=== PATIENT | female | born 2005 | race Hispanic/Latino ===

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

== ENCOUNTER 2024-02-20 15:28 | Emergency (ER) | payer OTHER ==
--- NOTE | 2024-02-20 16:45 | RAD REPORT ---
EXAMINATION: Transvaginal OB COMPARISON: None. HISTORY: bleeding TECHNIQUE: Real-time ultrasound was performed through the pelvis. A transvaginal scan was performed t o better visualize the intrauterine contents and adnexa. FINDINGS: Abnormal oblong saclike structure is present in the endometrium. There is surrounding heterogenous ma terial seen. Endometrium measures 9 mm. There is no normal IUP findings within the sac. Both ovaries are normal in size and demonstrate normal blood flow. 2.2 cm left corpus luteal cyst. IMPRESSION: Findings are most compatible with inevitable .
[2024-02-20 17:35] LABS: Absolute Lymphocytes (CBC) 1.8 K/uL (0.7-4.9); Absolute Monocytes 0.4 K/uL (0.1-1.3); Absolute Neutrophil 6.2 K/uL (1.8-8.0); Basophils % 0.3 % (0-1.3); Eosinophils % 0.3 % (0-4.4); Hemoglobin 13.3 g/dL (12.0-15.0); Lymphocytes % 21.1 % (15.3-44.8); MCH 29.8 pg (27.0-35.0); MCHC 33.2 g/dL (32.0-36.0); MPV 9.4 fL (7.6-11.3); Monocytes % 4.9 % (3.3-12.3); Neutrophils % 73.4 % (41.7-73.7); Platelets 269 thou/uL (152-406); RBC Red Blood Cell Count 4.45 M/uL (3.86-4.86); Red Cell Distribution Width 13.7 % (12.1-15.2); Specific Gravity 1.005 (1.005-1.030)
[2024-02-20 17:41] LABS: Specific Gravity 1.005 (1.005-1.030); Sqamous Epithelial <5 /HPF (None Seen); Urine Bacteria <20 /HPF (<20); Urine Bilirubin NEGATIVE (Negative); Urine Blood 3+ (OVER) (Negative); Urine Clarity Extremely Turbid (Clear); Urine Color Colorless (Yellow); Urine Culture Reflex Order NOT NEEDED; Urine Glucose NEGATIVE (Negative); Urine Ketones NEGATIVE (Negative); Urine Microscopic Reflex YN ORDER UMIC; Urine Nitrite NEGATIVE (Negative); Urine Protein NEGATIVE (Negative); Urine Urobilinogen Normal (Normal); Urine WBC <5 /HPF (<5)
[2024-02-20 17:50] LABS: Anion Gap 8.8 mEq/L (5.0-15.0); Potassium 3.8 mEq/L (3.5-5.1)
--- NOTE | 2024-02-20 18:34 | EDPHYS ---
Physician Documentation [facility] Name: Renee Rutledge Age: 18 yrs Sex: Female : 2005 Arrival Date: 02/20/2024 Time: 15:28 Bed 13 Private MD: ED Physician Freedom Greene HPI: 02/19 17:46 This 18 yrs old Female presents to ER via Ambulatory with complaints of rt Vaginal Bleeding, + Preg <12wks. 17:46 Patient is reportedly about 6 weeks presents to the ED with vaginal bleeding, rt less than a period but more than spotting for the past hour. Reports a lower abdominal cramping but denies other pain, acute complaints. Symptoms are moderate in severity, no other aggravating alleviating factors. 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 - Social history:: Smoking status: Patient denies any tobacco usage or history of. - Family history:: not pertinent. ROS: 17:46 Constitutional: Negative for fever, chills, and weight loss, Cardiovascular: Negative rt for chest pain, palpitations, and edema, Respiratory: Negative for shortness of breath, cough, wheezing, and pleuritic chest pain, Abdomen/GI: Negative for abdominal pain, nausea, vomiting, diarrhea, and constipation, Skin: Negative for injury, rash, and discoloration, Neuro: Negative for headache, weakness, numbness, tingling, and seizure, 17:46 : Positive for Vaginal bleeding, negative for dysuria, Exam: 17:46 Constitutional: This is a well developed, well nourished patient who is awake, alert, rt and in no acute distress. Head/Face: Normocephalic, atraumatic. Chest/axilla: Normal chest wall appearance and motion. Nontender with no deformity. No lesions are appreciated. Cardiovascular: Regular rate and rhythm with a normal S1 and S2. No gallops, murmurs, or rubs. Normal PMI, no JVD. No pulse deficits. Respiratory: Lungs have equal breath sounds bilaterally, clear to auscultation and percussion. No rales, rhonchi or wheezes noted. No increased work of breathing, no retractions or nasal flaring. Abdomen/GI: Soft, non-tender, with normal bowel sounds. No distension or tympany. No guarding or rebound. No evidence of tenderness throughout. Skin: Warm, dry with normal turgor. Normal color with no rashes, no lesions, and no evidence of cellulitis. MS/ Extremity: Pulses equal, no cyanosis. Neurovascular intact. Full, normal range of motion. Neuro: Awake and alert, GCS 15, oriented to person, place, time, and situation. Cranial nerves II-XII grossly intact. Motor strength 5/5 in all extremities. Sensory grossly intact. Cerebellar exam normal. Normal gait. Vital Signs: 15:52 BP 130 / 88; Pulse 83; Resp 14; Temp 97.8(TE); Pulse Ox 100% on R/A; Height 5 ft. 3 in. ss ; Pain 5/10; 15:52 Pain Scale: Adult ss MDM: 15:56 Medical Screening Exam initiated rt 18:33 ED course: Patient signed out to me by Dr. Sanchez to follow-up on ABO Rh. Patient sp3 is O+ therefore RhoGAM is not indicated. We will safely discharge her home at this time with diagnosis inevitable AB.. 02/19 15:58 Order name: Abo/rh Typing; Complete Time: 18:33 rt 02/19 15:58 Order name: Basic Metabolic Panel; Complete Time: 18:33 rt 02/19 15:58 Order name: CBC with Diff; Complete Time: 17:42 rt 02/19 15:58 Order name: Test, Urine; Complete Time: 17:42 rt 02/19 15:58 Order name: Quantitative Hcg; Complete Time: 18:33 rt 02/19 15:58 Order name: Urinalysis w/ reflexes; Complete Time: 17:42 rt 02/19 15:58 Order name: US Transvaginal Ob; Complete Time: 16:48 rt 02/19 15:58 Order name: IV Saline Lock; Complete Time: 17:19 rt 02/19 15:58 Order name: Labs collected and sent; Complete Time: 17:19 rt 02/19 15:58 Order name: NPO; Complete Time: 17:19 rt Administered Medications: No medications were administered Disposition Summary: 02/20/24 18:33 Discharge Ordered Notes: Location: Home sp3 Condition: Stable sp3 Diagnosis - Inevitable miscarriage sp3 Followup: sp3 - With: Private Physician - When: Upon discharge from the Emergency Department - Reason: Continuance of care Discharge Instructions: - Discharge Summary Sheet sp3 - Incomplete Miscarriage sp3 Forms: - Medication Reconciliation Form sp3 - Antibiotic Education sp3 - Prescription Opioid Use sp3 - Patient Portal Instructions sp3 - Leadership Thank You Letter sp3 - Family Work Release tm6 Signatures: Dispatcher [employer] Milka Rod RN RN ss Freedom Greene MD MD sp3 Oscar Sanchez MD MD rt
--- NOTE | 2024-02-20 18:34 | ER ---
Nurse's Notes [facility] Name: Renee Rutledge Age: 18 yrs Sex: Female : 2005 Arrival Date: 02/20/2024 Time: 15:28 Bed 13 Private MD: Diagnosis: Inevitable miscarriage Presentation: 02/19 15:52 Chief complaint: Patient states: light vaginal bleeding that began earlier today. Pt ss reports she is approximately 6 weeks . Coronavirus screen: Client denies travel out of the [place] in the last 14 days. Ebola Screen: Patient denies exposure to infectious person. Patient denies travel to an Ebola-affected area in the 21 days before illness onset. Initial Sepsis Screen: Does the patient meet any 2 criteria? No. Patient's initial sepsis screen is negative. Does the patient have a suspected source of infection? No. Patient's initial sepsis screen is negative. Risk Assessment: Do you want to hurt yourself or someone else? Patient reports no desire to harm self or others. Onset of symptoms was February 20, 2024. 15:52 Method Of Arrival: Ambulatory ss 15:52 Acuity: ADALID 3 ss Triage Assessment: 16:00 General: Appears in no apparent distress. Behavior is cooperative, appropriate for age, bp anxious. Pain: Denies pain. EENT: No deficits noted. : Reports vaginal bleeding that is. 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 - Social history:: Smoking status: Patient denies any tobacco usage or history of. - Family history:: not pertinent. Screenin:50 [facility] ED Fall Risk Assessment (Adult) History of falling in the last 3 months, bp including since admission No falls in past 3 months (0 pts) Confusion or Disorientation No (0 pts) Intoxicated or Sedated No (0 pts) Impaired Gait No (0 pts) Mobility Assist Device Used No (0 pt) Altered Elimination No (0 pt) Score/Fall Risk Level 0 - 2 = Low Risk. Abuse screen: Denies threats or abuse. Denies injuries from another. Nutritional screening: No deficits noted. Tuberculosis screening: No symptoms or risk factors identified. Assessment: 16:00 General: Appears in no apparent distress. Behavior is cooperative, appropriate for age, bp anxious. : Reports vaginal bleeding that is. 18:50 Reassessment: Patient appears in no apparent distress at this time. Patient is alert, bp oriented x 3, equal unlabored respirations, skin warm/dry/pink. Vital Signs: 15:52 BP 130 / 88; Pulse 83; Resp 14; Temp 97.8(TE); Pulse Ox 100% on R/A; Height 5 ft. 3 in. ss ; Pain 5/10; 15:52 Pain Scale: Adult ss ED Course: 15:32 Patient arrived in ED. mr 15:32 Oscar Sanchez MD is Attending Physician. rt 15:54 Triage completed. ss 15:54 Arm band placed on left wrist. ss 16:37 US Transvaginal Ob In Process Unspecified. EDAR 17:07 Sergei Nevarez, RN is Primary Nurse. bp 17:21 Initial lab(s) drawn, by mn, sent to lab. Urine collected: clean catch specimen, clear. bp Inserted saline lock: 20 gauge in right forearm, using aseptic technique. Blood collected. Flushed with 10 mL NS. 18:00 Attending Physician role handed off by Oscar Sanchez MD sp3 18:00 Freedom Greene MD is Attending Physician. sp3 18:50 Patient has correct armband on for positive identification. bp 18:50 No provider procedures requiring assistance completed. IV discontinued, intact, bp bleeding controlled, No redness/swelling at site. Pressure dressing applied. 18:51 Provided Education on: N/A. bp Administered Medications: No medications were administered Outcome: 18:33 Discharge ordered by . sp3 18:50 Discharged to home ambulatory, with family, bp 18:50 Condition: stable 18:50 Discharge instructions given to patient, Instructed on discharge instructions, follow up and referral plans. Demonstrated understanding of instructions, follow-up care, 18:51 Patient left the ED. bp Signatures: Dispatcher [employer] EDAR Yuki Huang, Reg Reg ChapmanMilka, ALBIN RN Sergei Nevarez, ALBIN RN bp Freedom Greene MD MD sp3 Oscar Sanchez MD MD rt
[2024-02-20 19:06] VITALS: BP 130/88; TEMP 97.8; O2SAT 100
== END 2024-02-20 18:51 | disposition home or self-care (01) ==
LOC: ER 15:28
DX: O03.9 Complete or unspecified spontaneous abortion without complication (principal)
CPT/HCPCS: 36415; 76817; 80048; 81001; 81025; 84702; 85025; 86900; 86901

== ENCOUNTER 2024-06-07 15:58 | Emergency (ER) | payer OTHER, SELFPAY ==
--- NOTE | 2024-06-07 17:20 | RAD REPORT ---
EXAM: Transvaginal OB HISTORY: vomiting;Abd pain COMPARISON: None TECHNIQUE: Multiple grayscale and color Doppler images were obtained in a transvaginal pelvic ultraso und. Spectral analysis of the Doppler waveforms of the ovaries were performed. FINDINGS: UTERUS: There is an intrauterine gestational sac which is low lying and slightly irregular in shape. This contains a yolk sac and pole. [place]-rump length: 0.5 cm which estimates gestational age at 6 week 1 day. A heart rate is detected at 115 bpm. Small subchronic hemorrhage. No free fluid is seen in the pelvis. RIGHT OVARY: Normal flow without focal mass. LEFT OVARY: Normal flow without focal mass. IMPRESSION: Single IUP identified with positive heart tones. Small subchorionic hemorrhage. The gestational sac is low lying and slightly irregular in shape. Consider short-term follow-up ultrasound.
[2024-06-07] MEDS ORDERED: NA CHLORIDE 0.9% 1,000 ML ONE (20:04)
[2024-06-07] MEDS ORDERED: PROMETHAZINE INJ 25 MG/ML AMP ONE (20:04)
[2024-06-07 20:22] LABS: Absolute Lymphocytes (CBC) 1.9 K/uL (0.7-4.9); Absolute Monocytes 0.6 K/uL (0.1-1.3); Absolute Neutrophil 8.6 K/uL (1.8-8.0); Basophils % 0.2 % (0-1.3); Eosinophils % 0.1 % (0-4.4); Hematocrit 41.4 % (36.0-45.0); Hemoglobin 13.9 g/dL (12.0-15.0); MCH 29.9 pg (27.0-35.0); MCHC 33.6 g/dL (32.0-36.0); MPV 9.2 fL (7.6-11.3); Monocytes % 5.4 % (3.3-12.3); Neutrophils % 77.3 % (41.7-73.7); Nucleated Red Blood Cells % 0.1 % (0-0); Platelets 289 thou/uL (152-406); RBC Red Blood Cell Count 4.65 M/uL (3.86-4.86); Red Cell Distribution Width 13.5 % (12.1-15.2)
[2024-06-07 20:50] LABS: Anion Gap 9.6 mEq/L (5.0-15.0); Potassium 3.6 mEq/L (3.5-5.1)
[2024-06-07 21:25] LABS: Specific Gravity 1.021 (1.005-1.030); Urine Bacteria None Seen /HPF (<20); Urine Bilirubin NEGATIVE (Negative); Urine Blood Negative (Negative); Urine Clarity Extremely Turbid (Clear); Urine Color Yellow (Yellow); Urine Culture Reflex Order NOT NEEDED; Urine Glucose NEGATIVE (Negative); Urine Ketones 2+ (Negative); Urine Microscopic Reflex YN ORDER UMIC; Urine Mucus 2+ /HPF (None Seen); Urine Nitrite NEGATIVE (Negative); Urine Protein TRACE (Negative); Urine RBC <5 /HPF (None Seen); Urine Urobilinogen Normal (Normal); Urine WBC <5 /HPF (<5)
--- NOTE | 2024-06-07 21:34 | ER ---
Nurse's Notes [facility] Name: Renee Rutledge Age: 19 yrs Sex: Female : 2005 Arrival Date: 06/07/2024 Time: 15:58 Bed DX2 Private MD: Diagnosis: Hyperemesis gravidarum Presentation: 06/07 16:29 Chief complaint: Patient states: she is 6 weeks and she has been throwing up ap3 everything even water since yesterday at 8pm. patient denies pain at this time. Coronavirus screen: At this time, the client does not indicate any symptoms associated with coronavirus-19. Ebola Screen: No symptoms or risks identified at this time. Initial Sepsis Screen: Does the patient meet any 2 criteria? No. Patient's initial sepsis screen is negative. Does the patient have a suspected source of infection? No. Patient's initial sepsis screen is negative. Risk Assessment: Do you want to hurt yourself or someone else? Patient reports no desire to harm self or others. Onset of symptoms was June 06, 2024 at 20:00. 16:29 Method Of Arrival: Ambulatory ap3 16:29 Acuity: ADALID 3 ap3 Triage Assessment: 16:32 General: Appears in no apparent distress. Behavior is calm, cooperative, appropriate ap3 for age. Pain: Denies pain. Neuro: Level of Consciousness is awake, alert, obeys commands, Oriented to person, place, time, situation. Cardiovascular: Patient's skin is warm and dry. Respiratory: Airway is patent Respiratory effort is even, unlabored, Respiratory pattern is regular, symmetrical. GI: Reports nausea, vomiting. 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 - Infectious Disease History:: Denies. - Social history:: Smoking status: Patient denies any tobacco usage or history of. - Family history:: not pertinent. - Hospitalizations: : No recent hospitalization is reported. Screenin:33 [facility] ED Fall Risk Assessment (Adult) History of falling in the last 3 months, ap3 including since admission No falls in past 3 months (0 pts) Confusion or Disorientation No (0 pts) Intoxicated or Sedated No (0 pts) Impaired Gait No (0 pts) Mobility Assist Device Used No (0 pt) Altered Elimination No (0 pt) Score/Fall Risk Level 0 - 2 = Low Risk Oriented to surroundings, Maintained a safe environment, Educated pt \T\ family on fall prevention, incl call for assistance when getting out of bed, Assessed \T\ reinforced patient's understanding of fall precautions, Hourly rounding (assess needs \T\ fall precautionary measures) done, Used ambulatory aids as needed (educated on \T\ assisted with). Abuse screen: Denies threats or abuse. Nutritional screening: No deficits noted. Tuberculosis screening: No symptoms or risk factors identified. Assessment: 21:26 Reassessment: Patient and/or family updated on plan of care and expected duration. Pain br2 level reassessed. Patient is alert, oriented x 3, equal unlabored respirations, skin warm/dry/pink. Patient states feeling better. Patient states symptoms have improved. Vital Signs: 16:29 BP 119 / 81; Pulse 82; Resp 18; Temp 98; Pulse Ox 100% ; Weight 56.7 kg; Height 5 ft. 3 ap3 in. ; Pain 0/10; 21:24 BP 116 / 64; Pulse 83; Resp 18 S; Pulse Ox 100% on R/A; br2 16:29 Body Mass Index 22.14 (56.70 kg, 160.02 cm) - Percentile 54.9 % ap3 16:29 Pain Scale: Adult ap3 ED Course: 16:01 Patient arrived in ED. mr 16:02 Arnold Norris MD is Attending Physician. rn 16:30 Triage completed. ap3 16:33 Arm band placed on right wrist. ap3 17:10 Transvaginal OB In Process Unspecified. EDMS 20:13 Inserted saline lock: 20 gauge in right antecubital area, using aseptic technique. vk Blood collected. Flushed with 10 mL NS. 20:14 Initial lab(s) drawn, by me, sent to lab. vk 20:14 CBC with Diff Sent. vk 20:14 Basic Metabolic Panel Sent. vk 20:14 HCG-Quantitative Sent. vk 20:36 Attending Physician role handed off by Arnold Norris MD rt 20:36 Oscar Sanchez MD is Attending Physician. rt 21:13 Urinalysis w/ reflexes Sent. hw 21:26 Natacha Abel, ALBIN is Primary Nurse. br2 21:40 No provider procedures requiring assistance completed. br2 21:48 IV discontinued, intact, bleeding controlled, No redness/swelling at site. Pressure br2 dressing applied. Administered Medications: 20:09 Drug: Promethazine IVP 12.5 mg IVP once Route: IVP; Site: right antecubital; vc1 21:00 Follow up: Response: No adverse reaction br2 20:09 Drug: NS 0.9% IV 1000 ml IV at 1000 ml once; to be given as a bolus over 60 minutes vc1 Route: IV; Rate: 1000 ml; Site: right antecubital; 21:15 Follow up: IV Status: Completed infusion; IV Intake: 1000ml br2 Intake: 21:15 IV: 1000ml; Total: 1000ml. br2 Outcome: 21:33 Discharge ordered by MD. rt 21:48 Discharged to home ambulatory, br2 21:48 Condition: good 21:48 Discharge instructions given to patient, Instructed on discharge instructions, follow up and referral plans. Demonstrated understanding of instructions, follow-up care, Prescriptions given X 1, 21:57 Patient left the ED. br2 Signatures: Dispatcher [employer] EDMS Yuki Huang, Reg Reg mr Arnold Norris MD MD rn Prokisch, Amanda, RN RN ap3 Lory Oliveros RN RN vc1 Oscar Sanchez MD MD rt Barbara Luna Belinda, RN RN br2 Ewelina Mejia
--- NOTE | 2024-06-07 21:34 | EDPHYS ---
Physician Documentation [facility] Name: Renee Rutledge Age: 19 yrs Sex: Female : 2005 Arrival Date: 06/07/2024 Time: 15:58 Bed DX2 Private MD: ED Physician Oscar Sanchez HPI: 06/07 16:44 This 19 yrs old Female presents to ER via Ambulatory with complaints of rn , Vomiting. 16:47 The patient presents to the emergency department with nausea, vomiting. Onset: The rn symptoms/episode began/occurred yesterday. Associated signs and symptoms: Pertinent positives: nausea, vomiting, Pertinent negatives: fever, GI bleeding. Severity of symptoms: At their worst the symptoms were moderate in the emergency department the symptoms are unchanged. The patient has not experienced similar symptoms in the past. Patient reports approximately 6 weeks , has not had ultrasound or imaging. This is by dates. Last ended in miscarriage. Patient reports not able to tolerate anything p.o. since 8 PM last night. Mild suprapubic abdominal discomfort but no diarrhea or true abdominal pain. No trauma. No bleeding or leakage of fluid.. 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 - Infectious Disease History:: Denies. - Social history:: Smoking status: Patient denies any tobacco usage or history of. - Family history:: not pertinent. - Hospitalizations: : No recent hospitalization is reported. ROS: 16:47 Constitutional: Negative for fever, chills, and weight loss, Neck: Negative for injury, rn pain, and swelling, Cardiovascular: Negative for chest pain, palpitations, and edema, Respiratory: Negative for shortness of breath, cough, wheezing, and pleuritic chest pain, Abdomen/GI: Positive for nausea and vomiting Back: Negative for injury and pain, : Negative for injury, bleeding, discharge, and swelling, MS/Extremity: Negative for injury and deformity, Neuro: Negative for headache, weakness, numbness, tingling, and seizure, Exam: 16:47 Constitutional: This is a well developed, well nourished patient who is awake, alert, rn and in no acute distress. ENT: Dry mucous membranes Cardiovascular: Regular rate and rhythm. No pulse deficits. Respiratory: No increased work of breathing, no retractions or nasal flaring. Abdomen/GI: Soft, nontender Neuro: Awake and alert, GCS 15 Vital Signs: 16:29 BP 119 / 81; Pulse 82; Resp 18; Temp 98; Pulse Ox 100% ; Weight 56.7 kg; Height 5 ft. 3 ap3 in. ; Pain 0/10; 21:24 BP 116 / 64; Pulse 83; Resp 18 S; Pulse Ox 100% on R/A; br2 16:29 Body Mass Index 22.14 (56.70 kg, 160.02 cm) - Percentile 54.9 % ap3 16:29 Pain Scale: Adult ap3 MDM: 16:02 Medical Screening Exam initiated rn 19:59 ED course: Went over ultrasound results with patient explaining subchorionic hemorrhage rn as well as irregular sac. Understands the need for close OB follow-up and given return precautions. Still pending blood and medication.. 22:39 Differential diagnosis: Hyperemesis, electrolyte disturbance. Data reviewed: vital rt signs, nurses notes, lab test result(s), radiologic studies. Counseling: I had a detailed discussion with the patient and/or guardian regarding the historical points, exam findings, and any diagnostic results supporting the discharge/admit diagnosis, lab results, radiology results, the need for outpatient follow up. Response to treatment: the patient's symptoms have markedly improved after treatment. 06/07 16:42 Order name: CBC with Diff; Complete Time: 20:36 rn 06/07 16:42 Order name: Basic Metabolic Panel; Complete Time: 20:57 rn 06/07 16:42 Order name: Urinalysis w/ reflexes; Complete Time: 21:26 rn 06/07 16:42 Order name: HCG-Quantitative; Complete Time: 20:57 rn 06/07 16:57 Order name: Transvaginal OB; Complete Time: 18:06 EDMS 06/07 16:42 Order name: IV Start; Complete Time: 20:14 rn Administered Medications: 20:09 Drug: Promethazine IVP 12.5 mg IVP once Route: IVP; Site: right antecubital; vc1 21:00 Follow up: Response: No adverse reaction br2 20:09 Drug: NS 0.9% IV 1000 ml IV at 1000 ml once; to be given as a bolus over 60 minutes vc1 Route: IV; Rate: 1000 ml; Site: right antecubital; 21:15 Follow up: IV Status: Completed infusion; IV Intake: 1000ml br2 Disposition Summary: 06/07/24 21:33 Discharge Ordered Notes: Location: Home rt Problem: new rt Symptoms: have improved rt Condition: Stable rt Diagnosis - Hyperemesis gravidarum rt Followup: rt - With: Private Physician - When: 2 - 3 days - Reason: Discharge Instructions: - Discharge Summary Sheet rt - Hyperemesis Gravidarum rt Forms: - Medication Reconciliation Form rt - Antibiotic Education rt - Prescription Opioid Use rt - Patient Portal Instructions rt - Leadership Thank You Letter rt Prescriptions: - promethazine 25 mg Oral Tablet - take 1 tablet ORAL route every 6 hours As needed; 20 tablet; Refills: 0, rt Product Selection Permitted Signatures: Dispatcher [employer] Arnold Greer MD MD rn Prokisch, Amanda, RN RN ap3 Lory Oliveros RN RN vc1 Oscar Sanchez MD MD rt Natacha Abel RN br2 Corrections: (The following items were deleted from the chart) 16:57 16:43 OB Limited+[email or web address].RAD.[email or web address] ordered. CARMENKS TRENT
[2024-06-08 09:25] VITALS: TEMP 98; O2SAT 100
[2024-06-08 09:26] VITALS: BP 116/64
== END 2024-06-07 21:57 | disposition home or self-care (01) ==
LOC: ER 15:58
DX: O21.0 Mild hyperemesis gravidarum (principal); Z3A.01 Less than 8 weeks gestation of pregnancy
CPT/HCPCS: 36415; 76817; 80048; 81001; 84702; 85025; 96361; 96374; 99284; J2550; J7030

== ENCOUNTER 2024-06-15 07:20 | Emergency (ER) | payer SELFPAY ==
[2024-06-15] MEDS ORDERED: NA CHLORIDE 0.9% 1,000 ML ONE (07:55)
[2024-06-15] MEDS ORDERED: ONDANSETRON 4 MG/2 ML VIAL ONE (07:56)
[2024-06-15 08:00] LABS: Absolute Lymphocytes (CBC) 1.7 K/uL (0.7-4.9); Absolute Monocytes 0.6 K/uL (0.1-1.3); Absolute Neutrophil 7.3 K/uL (1.8-8.0); Basophils % 0.4 % (0-1.3); Eosinophils % 0.3 % (0-4.4); Hematocrit 37.2 % (36.0-45.0); Hemoglobin 12.8 g/dL (12.0-15.0); Lymphocytes % 17.9 % (15.3-44.8); MCH 30.7 pg (27.0-35.0); MCHC 34.3 g/dL (32.0-36.0); MCV 89.4 fL (80-100); MPV 9.5 fL (7.6-11.3); Monocytes % 6.5 % (3.3-12.3); Neutrophils % 74.9 % (41.7-73.7); Nucleated Red Blood Cells % 0.1 % (0-0); Platelets 239 thou/uL (152-406); RBC Red Blood Cell Count 4.16 M/uL (3.86-4.86); Red Cell Distribution Width 13.2 % (12.1-15.2)
[2024-06-15 08:32] LABS: ALT/SGPT 15 U/L (13-56); AST/SGOT < 10 U/L (15-37); Albumin 3.8 g/dL (3.4-5.0); Albumin/Globulin Ratio 1.3 (1.1-1.8); Alkaline Phosphatase 50 U/L (45-117); Anion Gap 9.4 mEq/L (5.0-15.0); BUN Blood Urea Nitrogen 7 mg/dL (7-18); Bicarbonate 23 mEq/L (21-32); Glomerular Filtration Rate 136 ml/min (=/>90); Glucose Level 87 mg/dL (74-106); HCG, Quantitative 137740 mIU/mL (1-3); Potassium 3.4 mEq/L (3.5-5.1); Protein, Total 6.8 g/dL (6.4-8.2); Sodium Level 136 mEq/L (136-145)
--- NOTE | 2024-06-15 08:41 | ER ---
Nurse's Notes [facility] Name: Renee Rutledge Age: 19 yrs Sex: Female : 2005 Arrival Date: 06/15/2024 Time: 07:20 Bed 6 Private MD: Diagnosis: Mild hyperemesis gravidarum;Hypokalemia Presentation: 06/15 07:35 Chief complaint: Patient states: N/V that began 1 week ago. Pt reports she is 7 weeks ss ago. Coronavirus screen: Client denies travel out of the [place] in the last 14 days. Ebola Screen: Patient denies exposure to infectious person. Patient denies travel to an Ebola-affected area in the 21 days before illness onset. Initial Sepsis Screen: Does the patient meet any 2 criteria? No. Patient's initial sepsis screen is negative. Does the patient have a suspected source of infection? No. Patient's initial sepsis screen is negative. Risk Assessment: Do you want to hurt yourself or someone else? Patient reports no desire to harm self or others. Onset of symptoms was June 13, 2024. 07:35 Method Of Arrival: Ambulatory ss 07:35 Acuity: ADALID 3 ss Historical: - Allergies: 07:46 No Known Allergies; aa5 - PMHx: 07:37 Gastroesophageal reflux disease; ss Screenin:45 [facility] ED Fall Risk Assessment (Adult) History of falling in the last 3 months, aa5 including since admission No falls in past 3 months (0 pts) Confusion or Disorientation No (0 pts) Intoxicated or Sedated No (0 pts) Impaired Gait No (0 pts) Mobility Assist Device Used No (0 pt) Altered Elimination No (0 pt) Score/Fall Risk Level 0 - 2 = Low Risk Oriented to surroundings, Maintained a safe environment, Educated pt \T\ family on fall prevention, incl call for assistance when getting out of bed, Assessed \T\ reinforced patient's understanding of fall precautions. Abuse screen: Denies threats or abuse. Nutritional screening: No deficits noted. Tuberculosis screening: No symptoms or risk factors identified. Assessment: 07:45 General: Appears comfortable, Behavior is calm, cooperative, Reports being 7 weeks aa5 . Pain: Denies pain. Neuro: Level of Consciousness is awake, alert, obeys commands, Oriented to person, place, time, situation, Appropriate for age. Cardiovascular: Patient's skin is warm and dry. Respiratory: Airway is patent Respiratory effort is even, unlabored, Respiratory pattern is regular, symmetrical. GI: Abdomen is flat, non-distended, Bowel sounds present X 4 quads. Abd is soft and non tender X 4 quads. Reports intolerance of fluids, intolerance of food, nausea, vomiting, since 1 week ago. : Denies vaginal bleeding. EENT: No signs and/or symptoms were reported regarding the EENT system. Derm: Skin is pink, warm \T\ dry. Musculoskeletal: Range of motion: intact in all extremities. 09:05 Reassessment: Patient is alert, oriented x 3, equal unlabored respirations, skin aa5 warm/dry/pink. Vital Signs: 07:35 BP 117 / 74; Pulse 84; Resp 15; Temp 97.1(TE); Pulse Ox 100% on R/A; Pain 0/10; ss 09:00 BP 115 / 78; Pulse 79; Resp 18 S; Pulse Ox 100% on R/A; aa5 07:35 Pain Scale: Adult ss ED Course: 07:24 Patient arrived in ED. sj2 07:31 Uriel Santo MD is Attending Physician. ec2 07:37 Triage completed. ss 07:37 Eva House, RN is Primary Nurse. aa5 07:37 Arm band placed on right wrist. ss 07:45 Patient has correct armband on for positive identification. Placed in gown. Bed in low aa5 position. Call light in reach. Side rails up X 1. Adult w/ patient. Pulse ox on. NIBP on. 07:46 Initial lab(s) drawn, by me, sent to lab. Inserted saline lock: 20 gauge in right aa5 antecubital area, using aseptic technique. Blood collected. Flushed with 10 mL NS. 07:58 Warm blanket given. am7 08:54 No provider procedures requiring assistance completed. aa5 09:05 IV discontinued, intact, bleeding controlled, No redness/swelling at site. Pressure aa5 dressing applied. Administered Medications: 08:06 Drug: NS 0.9% IV 1000 ml IV at 1 bolus Per protocol; to be given as a bolus over 60 aa5 minutes Route: IV; Rate: 1 bolus; Site: right antecubital; 09:05 Follow up: IV Status: Completed infusion; IV Intake: 1000ml aa5 08:06 Drug: Ondansetron IVP 4 mg IVP once; over 2 minutes Route: IVP; Site: right antecubital;aa5 08:10 Follow up: Response: No adverse reaction aa5 Medication: 08:54 VIS not applicable for this client. aa5 Intake: 09:05 IV: 1000ml; Total: 1000ml. aa5 Outcome: 08:40 Discharge ordered by . yeny 09:07 Discharged to home ambulatory, with significant other, aa5 09:07 Condition: stable 09:07 Discharge instructions given to patient, Instructed on discharge instructions, follow up and referral plans. medication usage, Demonstrated understanding of instructions, follow-up care, medications, Prescriptions given X 1, 09:08 Patient left the ED. aa5 Signatures: Eva House RN RN aa5 Milka Chapman, Uriel Coleman RN, MD MD ec2 Harjeet Castorena 2 Irene Fajardo am7 Corrections: (The following items were deleted from the chart) 09:09 09:00 Patient did not have IV access during this emergency room visit. aa5 aa5
--- NOTE | 2024-06-15 08:41 | EDPHYS ---
Physician Documentation [facility] Name: Renee Rutledge Age: 19 yrs Sex: Female : 2005 Arrival Date: 06/15/2024 Time: 07:20 Bed 6 Private MD: ED Physician Uriel Santo HPI: 06/15 07:37 This 19 yrs old Female presents to ER via Ambulatory with complaints of ec2 Vomiting - . 07:37 Patient arrives today for nausea and vomiting in setting of 7 weeks . Was seen ec2 here last week, given medications and subsequently discharged. Patient reports she had normal ultrasonography, denies any vaginal bleeding. Reports generalized abdominal cramping. Denies urinary complaints.. Historical: - Allergies: 07:46 No Known Allergies; aa5 - PMHx: 07:37 Gastroesophageal reflux disease; ss ROS: 07:38 Constitutional: as per hpi ec2 Exam: 07:38 Constitutional: GEN: NAD Head: atraumatic Eyes: EOMI Ears: External ears are ec2 normal. CV: regular rate LUNGS: no respiratory distress ABD: non-distended, soft, not guarding, not rigid SKIN: no evidence of rashes MSK: no evidence of trauma Vital Signs: 07:35 BP 117 / 74; Pulse 84; Resp 15; Temp 97.1(TE); Pulse Ox 100% on R/A; Pain 0/10; ss 09:00 BP 115 / 78; Pulse 79; Resp 18 S; Pulse Ox 100% on R/A; aa5 07:35 Pain Scale: Adult ss MDM: 07:31 Medical Screening Exam initiated ec2 07:38 Data reviewed: vital signs, nurses notes. ED course: Patient arrives today for ec2 evaluation of nausea and vomiting. Examination yields abdominal findings as above. Will obtain lab work, give the patient crystalloid as well as Zofran. DDx includes hyperemesis gravidarum, dehydration, electrolyte disturbances. Doubt complication given reassuring abdominal examination, lack of vaginal bleeding and recent ultrasonography. 08:28 ED course: External records reviewed, shows patient had an ultrasound last week and ec2 single IUP noted with small subchorionic hemorrhage, patient denies any vaginal bleeding.. 08:40 ED course: On reassessment patient reports improvement in symptoms, will be discharged ec2 with prescription for antiemetic and have the patient follow-up with OB. Return precautions given.. 06/15 07:32 Order name: CBC with Diff; Complete Time: 08:27 ec2 06/15 07:32 Order name: CMP; Complete Time: 08:36 ec2 06/15 07:32 Order name: HCG-Quantitative; Complete Time: 08:36 ec2 06/15 07:32 Order name: IV; Complete Time: 07:46 ec2 Administered Medications: 08:06 Drug: NS 0.9% IV 1000 ml IV at 1 bolus Per protocol; to be given as a bolus over 60 aa5 minutes Route: IV; Rate: 1 bolus; Site: right antecubital; 09:05 Follow up: IV Status: Completed infusion; IV Intake: 1000ml aa5 08:06 Drug: Ondansetron IVP 4 mg IVP once; over 2 minutes Route: IVP; Site: right antecubital;aa5 08:10 Follow up: Response: No adverse reaction aa5 Disposition Summary: 06/15/24 08:40 Discharge Ordered Condition: Stable ec2 Diagnosis - Mild hyperemesis gravidarum ec2 - Hypokalemia ec2 Followup: ec2 - With: Private Physician - When: - Reason: Re-evaluation by your physician Discharge Instructions: - Discharge Summary Sheet ec2 - Potassium Content of Foods ec2 - Hyperemesis Gravidarum ec2 Forms: - Medication Reconciliation Form ec2 - Antibiotic Education ec2 - Prescription Opioid Use ec2 - Patient Portal Instructions ec2 - Leadership Thank You Letter ec2 Prescriptions: - Zofran 4 mg Oral Tablet - take 1 tablet ORAL route every 12 hours As needed; 20 tablet; Refills: 0, ec2 Product Selection Permitted Signatures: Dispatcher [employer] Eva Robledo, RN RN aa5 Milka Chapman RN RN ss Uriel Santo MD MD ec2
[2024-06-15 09:13] VITALS: TEMP 97.1; O2SAT 100
[2024-06-15 09:15] VITALS: BP 115/78
== END 2024-06-15 09:08 | disposition home or self-care (01) ==
LOC: ER 07:20
DX: O21.0 Mild hyperemesis gravidarum (principal); O99.281 Endocrine, nutritional and metabolic diseases complicating pregnancy, first trimester; E87.6 Hypokalemia; Z3A.01 Less than 8 weeks gestation of pregnancy
CPT/HCPCS: 36415; 80053; 84702; 85025; 96361; 96374; 99284; J2405; J7030

== ENCOUNTER 2024-06-22 14:07 | Emergency (ER) | payer SELFPAY ==
--- NOTE | 2024-06-22 16:12 | RAD REPORT ---
EXAM: 1St Trimest Single 1St Fetus HISTORY: ABD CRAMPING, COMPARISON: None TECHNIQUE: Multiple grayscale and color Doppler images were obtained in a transabdominal pelvic ultra sound. Spectral analysis of the Doppler waveforms of the ovaries were performed. FINDINGS: UTERUS: There is an intrauterine gestational sac. This contains a yolk sac and pole. [place]-rump length: 1.9 cm which estimates gestational age at 8 week 3 day. A heart rate is detected at 175 bpm. No evidence of subchorionic hemorrhage. No free fluid is seen in the pelvis. RIGHT OVARY: Normal flow without focal mass. LEFT OVARY: Nonvisualized. IMPRESSION: Single live intrauterine with estimated age of 8 weeks 3 day.
[2024-06-22] MEDS ORDERED: METOCLOPRAMIDE 10 MG/2mL INJ ONE (16:40)
[2024-06-22] MEDS ORDERED: DIPHENHYDRAMINE 50 MG/ML VIAL ONE (16:40)
[2024-06-22] MEDS ORDERED: Ringers Lactate 1,000 ML IV ONE (16:41)
--- NOTE | 2024-06-22 16:41 | RAD REPORT ---
EXAMINATION: Head Brain Wo Cont CLINICAL INDICATION: Female, 19 years old.SYNCOPE TECHNIQUE: Axial CT images from the skull base to the vertex without intravenous contrast. Coronal an d sagittal reformatted images were created from the data set. One or more of the following dose reduction techniques were used: Automated exposure control, adjustment of the mA and/or kV according to patient size, and/or iterative reconstruction. Unless otherwise specified, incidental findings do not require dedicated imaging follow-up. [id number]. COMPARISON: No prior exam. FINDINGS: INTRACRANIAL: No acute intracranial hemorrhage. No hydrocephalus. No mass effect or midline shift. No significant white matter disease. VASCULATURE: No visualized abnormalities in the arteries or dural venous sinuses. SCALP/SKULL: No calvarial fracture identified. No acute soft tissue abnormality. SINUSES: The visualized paranasal sinuses are mostly clear. No significant mastoid fluid. IMPRESSION: No acute intracranial abnormality.
[2024-06-22 17:12] LABS: Absolute Lymphocytes (CBC) 1.8 K/uL (0.7-4.9); Absolute Monocytes 0.5 K/uL (0.1-1.3); Absolute Neutrophil 8.8 K/uL (1.8-8.0); Basophils % 0.2 % (0-1.3); Eosinophils % 0.2 % (0-4.4); Hematocrit 39.9 % (36.0-45.0); MCH 31.2 pg (27.0-35.0); MCV 89.2 fL (80-100); MPV 9.9 fL (7.6-11.3); Monocytes % 4.3 % (3.3-12.3); Neutrophils % 79.3 % (41.7-73.7); Platelets 239 thou/uL (152-406); RBC Red Blood Cell Count 4.47 M/uL (3.86-4.86); Red Cell Distribution Width 13.5 % (12.1-15.2)
[2024-06-22 17:21] LABS: Specific Gravity 1.019 (1.005-1.030); Transitional Epithelial <5 /HPF (None Seen); Urine Bacteria <20 /HPF (<20); Urine Bilirubin NEGATIVE (Negative); Urine Blood Negative (Negative); Urine Clarity Extremely Turbid (Clear); Urine Color Yellow (Yellow); Urine Culture Reflex Order NOT NEEDED; Urine Glucose NEGATIVE (Negative); Urine Ketones 3+ (Negative); Urine Microscopic Reflex YN ORDER UMIC; Urine Mucus 1+ /HPF (None Seen); Urine Nitrite NEGATIVE (Negative); Urine Protein NEGATIVE (Negative); Urine RBC <5 /HPF (None Seen); Urine Urobilinogen Normal (Normal); Urine WBC <5 /HPF (<5); Urine pH 6.5 (5.0-7.0)
[2024-06-22 17:23] LABS: Specific Gravity 1.019 (1.005-1.030)
[2024-06-22 18:05] LABS: ALT/SGPT 15 U/L (13-56); Albumin/Globulin Ratio 1.2 (1.1-1.8); Alkaline Phosphatase 53 U/L (45-117); Anion Gap 11.8 mEq/L (5.0-15.0); BUN Blood Urea Nitrogen 5 mg/dL (7-18); Bicarbonate 24 mEq/L (21-32); Bilirubin Total 0.8 mg/dL (0.2-1.0); Globulin 3.4 g/dL (2.3-3.5); Glomerular Filtration Rate 138 ml/min (=/>90); Glucose Level 87 mg/dL (74-106); Lipase 40 U/L (13-75); Magnesium 2.3 mg/dL (1.6-2.4); Potassium 3.8 mEq/L (3.5-5.1); Protein, Total 7.4 g/dL (6.4-8.2); Sodium Level 137 mEq/L (136-145)
[2024-06-22 18:12] LABS: AST/SGOT < 10 U/L (15-37)
--- NOTE | 2024-06-22 18:25 | ER ---
Nurse's Notes [facility] Name: Renee Rutledge Age: 19 yrs Sex: Female : 2005 Arrival Date: 06/22/2024 Time: 14:07 Bed 11 Private MD: Diagnosis: Volume depletion, unspecified;Nausea with vomiting, unspecified; related conditions, unspecified, first trimester;Syncope Presentation: 06/22 14:35 Chief complaint: Spouse and/or significant other states: nausea, vomiting for 4 days , iw gets dizzy when she stands , 3 days ago almost passed out after a hot shower, is 8 weeks . Coronavirus screen: At this time, the client does not indicate any symptoms associated with coronavirus-19. Ebola Screen: No symptoms or risks identified at this time. Initial Sepsis Screen: Does the patient meet any 2 criteria? No. Patient's initial sepsis screen is negative. Does the patient have a suspected source of infection? No. Patient's initial sepsis screen is negative. Risk Assessment: Do you want to hurt yourself or someone else? Patient reports no desire to harm self or others. Onset of symptoms was June 18, 2024. 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 - Infectious Disease History:: Denies. - Social history:: Smoking status: Patient uses street drugs, marijuana. Screenin:50 [facility] ED Fall Risk Assessment (Adult) History of falling in the last 3 months, hb including since admission No falls in past 3 months (0 pts) Confusion or Disorientation No (0 pts) Intoxicated or Sedated No (0 pts) Impaired Gait No (0 pts) Mobility Assist Device Used No (0 pt) Altered Elimination No (0 pt) Score/Fall Risk Level 0 - 2 = Low Risk Oriented to surroundings, Maintained a safe environment, Educated pt \T\ family on fall prevention, incl call for assistance when getting out of bed. Abuse screen: Denies threats or abuse. Denies injuries from another. Nutritional screening: No deficits noted. Tuberculosis screening: No symptoms or risk factors identified. Assessment: 16:49 General: Appears in no apparent distress. Behavior is calm, cooperative. Pain: Denies hb pain. Neuro: Level of Consciousness is awake, alert, obeys commands, Oriented to person, place, time, situation. Cardiovascular: Patient's skin is warm and dry. Respiratory: Respiratory effort is even, unlabored, Respiratory pattern is regular, symmetrical. GI: Reports nausea, vomiting. : No signs and/or symptoms were reported regarding the genitourinary system. EENT: No signs and/or symptoms were reported regarding the EENT system. Derm: Skin is pink, warm \T\ dry. Musculoskeletal: No signs and/or symptoms reported regarding the musculoskeletal system. 19:38 Reassessment: Patient is alert, oriented x 3, equal unlabored respirations, skin br2 warm/dry/pink. Patient states feeling better. Patient states symptoms have improved. Vital Signs: 14:35 BP 117 / 71; Pulse 87; Resp 16; Temp 97.4; Pulse Ox 96% ; Weight 56.7 kg; Height 5 ft. iw 3 in. ; Pain 0/10; 19:36 BP 110 / 70; Pulse 80; Resp 16 S; Pulse Ox 98% on R/A; br2 14:35 Body Mass Index 22.14 (56.70 kg, 160.02 cm) iw 14:35 Pain Scale: Adult iw ED Course: 14:11 Patient arrived in ED. al6 14:36 Triage completed. iw 14:58 Fred Gardner PA is PHCP. cp 14:58 Fred Mathews MD is Attending Physician. cp 16:06 1[address] Trimest Single 1St Fetus In Process Unspecified. EDMS 16:28 CT Head Brain wo Cont In Process Unspecified. EDMS 16:39 Kerry Escobedo, RN is Primary Nurse. hb 16:45 Initial lab(s) drawn, by me, sent to lab. Inserted saline lock: 22 gauge in right iw antecubital area, using aseptic technique. Blood collected. Flushed with 10 mL NS. 16:49 CBC with Diff Sent. hb 16:49 CMP Sent. hb 16:49 Lipase Sent. hb 16:49 Test, Urine Sent. hb 16:50 Patient has correct armband on for positive identification. Call light in reach. Side hb rails up X 1. Provided Education on: tests, result times, medications, use of call light . 19:39 IV discontinued, intact, bleeding controlled, No redness/swelling at site. Pressure br2 dressing applied. 19:39 No provider procedures requiring assistance completed. br2 Administered Medications: 16:48 Drug: Ringers - Lactated Ringers Solution IV 1000 ml IV at calculated rate bolus; to be hb given as a bolus over 60 minutes Route: IV; Rate: calculated rate; Site: right antecubital; 19:00 Follow up: Response: No adverse reaction; IV Status: Completed infusion; IV Intake: br2 1000ml 16:48 Drug: diphenhydrAMINE IVP 12.5 mg IVP once Route: IVP; Site: right antecubital; hb 19:00 Follow up: Response: No adverse reaction br2 16:48 Drug: metoCLOPramide IVP 10 mg IVP once; over 1 to 2 minutes Route: IVP; Site: right hb antecubital; 19:00 Follow up: Response: No adverse reaction br2 Intake: 19:00 IV: 1000ml; Total: 1000ml. br2 Outcome: 18:25 Discharge ordered by MD. cp 19:39 Discharged to home ambulatory, br2 19:39 Condition: stable 19:39 Discharge instructions given to patient, Instructed on discharge instructions, follow up and referral plans. Demonstrated understanding of instructions, follow-up care, medications, Prescriptions given X 1, 19:42 Patient left the ED. br2 Signatures: Dispatcher [employer] EDRadha Amaya RN RN iw Fred Gardner PA PA cp Baxter, Heather, RN RN Natacha Abel RN RN br2 Latisha Monk6 Corrections: (The following items were deleted from the chart) 14:37 14:35 Chief complaint: Spouse and/or significant other states: nausea, vomiting for 4 iw days , gets dizzy when she stands iw 14:38 14:35 BP 117 / 71; Pulse 87bpm; Resp 16bpm; Pulse Ox 96%; Temp 97.4F; iw iw
--- NOTE | 2024-06-22 18:25 | EDPHYS ---
Physician Documentation [facility] Name: Renee Rutledge Age: 19 yrs Sex: Female : 2005 Arrival Date: 06/22/2024 Time: 14:07 Bed 11 Private MD: ED Physician Fred Mathews HPI: 06/22 15:40 This 19 yrs old Female presents to ER via Ambulatory with complaints of cp Nausea/Vomiting, Near Syncope. 15:40 The patient presents to the emergency department with nausea, that is moderate, cp vomiting, that is intermittent. 15:40 Onset: The symptoms/episode began/occurred 4 day(s) ago. cp 15:40 Possible causes: . Associated signs and symptoms: Pertinent positives: cp dizziness, lightheaded and syncopal episode. 15:40 Patient reports episode of losing consciousness 3days ago while in shower. No injuries cp sustained, but became lightheaded, arms were stiff and brief loss of consciousness observed by significant other. Arms reportedly shook but no incontinence and patient was speaking and answering questions briefly after incident. 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 - Infectious Disease History:: Denies. - Social history:: Smoking status: Patient uses street drugs, marijuana. ROS: 15:45 Eyes: Negative for injury, pain, redness, and discharge, cp 15:45 Constitutional: Positive for poor PO intake, Negative for body aches, chills, fever, 15:45 Cardiovascular: Negative for chest pain, edema, palpitations, 15:45 Respiratory: Negative for cough, shortness of breath, wheezing, 15:45 Abdomen/GI: Positive for nausea and vomiting, Negative for abdominal pain, diarrhea, cp constipation, hematemesis, 15:45 : Negative for urinary symptoms, vaginal bleeding, 15:45 Neuro: Positive for syncope, Negative for altered mental status, 15:45 All other systems are negative, Exam: 15:50 Constitutional: The patient appears in no acute distress, alert, awake, non-toxic, well cp developed, well nourished, 15:50 Head/Face: Normocephalic, atraumatic. cp 15:50 Eyes: Periorbital structures: appear normal, Pupils: equal, round, and reactive to light and accomodation, Extraocular movements: intact throughout, Conjunctiva: normal, no exudate, no injection, Sclera: no appreciated abnormality, Lids and lashes: appear normal, bilaterally, 15:50 ENT: External ear(s): are unremarkable, Nose: is normal, Mouth: Lips: dry, Oral mucosa: moist, Posterior pharynx: Airway: no evidence of obstruction, patent, 15:50 Neck: ROM/movement: Meningeal signs: are not present, nuchal rigidity, is not appreciated, 15:50 Chest/axilla: Inspection: normal, 15:50 Cardiovascular: Rate: normal, Rhythm: regular, 15:50 Respiratory: the patient does not display signs of respiratory distress, Respirations: normal, no use of accessory muscles, no retractions, labored breathing, is not present, Breath sounds: are clear throughout, no decreased breath sounds, no stridor, no wheezing, 15:50 Abdomen/GI: Inspection: abdomen appears normal, Palpation: abdomen is soft and non-tender, in all quadrants, 15:50 Neuro: Orientation: to person, place \T\ time. Mentation: is normal, Cerebellar function: is grossly normal, Motor: moves all fours, strength is normal, Sensation: is normal, Vital Signs: 14:35 BP 117 / 71; Pulse 87; Resp 16; Temp 97.4; Pulse Ox 96% ; Weight 56.7 kg; Height 5 ft. iw 3 in. ; Pain 0/10; 19:36 BP 110 / 70; Pulse 80; Resp 16 S; Pulse Ox 98% on R/A; br2 14:35 Body Mass Index 22.14 (56.70 kg, 160.02 cm) iw 14:35 Pain Scale: Adult iw MDM: 15:00 Medical Screening Exam initiated cp 16:00 Differential diagnosis: gastritis, cholecystitis, pancreatitis, appendicitis, viral cp gastroenteritis, gastroenteritis, dehydration, electrolyte abnormality. 18:25 Data reviewed: vital signs, nurses notes, lab test result(s), radiologic studies, CT cp scan, ultrasound, and as a result, I will discharge patient. 18:25 I considered the following discharge prescriptions or medication management in the emergency department Medications were administered in the Emergency Department. See MAR. Independent interpretation of the following test(s) in the Emergency Department EKG: See my EKG interpretation above. Counseling: I had a detailed discussion with the patient and/or guardian regarding the historical points, exam findings, and any diagnostic results supporting the discharge/admit diagnosis, lab results, radiology results, the need for outpatient follow up, an OB/Gyne specialist, to return to the emergency department if symptoms worsen or persist or if there are any questions or concerns that arise at home. Response to treatment: the patient's symptoms have markedly improved after treatment, and as a result, I will discharge patient. 06/22 15:34 Order name: CBC with Diff; Complete Time: 17:46 cp 06/22 17:46 Interpretation: Normal except: WBC 11.10; FLOR% 79.3; NEUT A 8.8. 06/22 15:34 Order name: CMP; Complete Time: 18:17 cp 06/22 18:17 Interpretation: Normal except: BUN 5; CRE 0.49; AST < 10. cp 06/22 15:34 Order name: Lipase; Complete Time: 18:17 cp 06/22 15:34 Order name: Test, Urine; Complete Time: 17:46 cp 06/22 17:47 Interpretation: URINE PREG POS; Reviewed. 06/22 15:34 Order name: Urinalysis w/ reflexes; Complete Time: 17:46 cp 06/22 17:47 Interpretation: Normal except: [facility] Extremely Turbid; UKET 3+. 06/22 15:34 Order name: Magnesium; Complete Time: 18:17 cp 06/22 15:34 Order name: CT Head Brain wo Cont; Complete Time: 17:04 cp 06/22 17:04 Interpretation: Report reviewed. 06/22 16:06 Order name: 1St Trimest Single 1St Fetus; Complete Time: 17:04 EDMS 03 17:47 Interpretation: Report reviewed. 06/22 15:34 Order name: IV Saline Lock; Complete Time: 16:48 cp 06/22 15:34 Order name: Labs collected and sent; Complete Time: 16:48 cp 06/22 15:34 Order name: EKG - Nurse/Tech 06/22 17:48 Order name: PO challenge cp Administered Medications: 16:48 Drug: Ringers - Lactated Ringers Solution IV 1000 ml IV at calculated rate bolus; to be hb given as a bolus over 60 minutes Route: IV; Rate: calculated rate; Site: right antecubital; 19:00 Follow up: Response: No adverse reaction; IV Status: Completed infusion; IV Intake: br2 1000ml 16:48 Drug: diphenhydrAMINE IVP 12.5 mg IVP once Route: IVP; Site: right antecubital; hb 19:00 Follow up: Response: No adverse reaction br2 16:48 Drug: metoCLOPramide IVP 10 mg IVP once; over 1 to 2 minutes Route: IVP; Site: right hb antecubital; 19:00 Follow up: Response: No adverse reaction br2 Disposition Summary: 06/22/24 18:25 Discharge Ordered Notes: Location: Home cp Problem: new cp Symptoms: have improved cp Condition: Stable cp Diagnosis - Volume depletion, unspecified cp - Nausea with vomiting, unspecified cp - related conditions, unspecified, first trimester cp - Syncope cp Followup: cp - With: Private Physician - When: 2 - 3 days - Reason: Recheck today's complaints Discharge Instructions: - Discharge Summary Sheet cp - Dehydration, Adult cp - Nausea and Vomiting, Adult cp - Syncope cp - First Trimester of cp Forms: - Medication Reconciliation Form cp - Antibiotic Education cp - Prescription Opioid Use cp - Patient Portal Instructions cp - Leadership Thank You Letter cp Prescriptions: - Reglan 10 mg Oral tablet - take 1 tablet ORAL route every 6 hours take 30 minutes before meals and at cp bedtime; 30 tablet; Refills: 0, Product Selection Permitted Signatures: Dispatcher [employer] EDRadha Amaya RN ALBIN Fred Gardner PA PA cp Kerry Escobedo RN RN hb Riddle, Belinda RN br2 Corrections: (The following items were deleted from the chart) 15:34 15:34 CBC+H.LAB.BRZ ordered. EDMS EDMS 15:34 15:34 COMPREHENSIVE METABOLIC PANEL+C.LAB.BRZ ordered. EDMS EDMS 15:34 15:34 LIPASE+C.LAB.BRZ ordered. EDMS EDMS 15:34 15:34 Test, Urine+UC.LAB.BRZ ordered. EDMS EDMS 15:34 15:34 Urinalysis+U.LAB.BRZ ordered. EDMS EDMS 15:34 15:34 MAGNESIUM+C.LAB.BRZ ordered. EDMS EDMS 15:35 15:35 Head Brain Wo Cont+CT.RAD.BRZ ordered. EDMS EDMS 16:06 15:35 OB Limited+US.RAD.BRZ ordered. EDMS EDMS 06/23 18:51 06/22 15:25 Constitutional: Positive for poor PO intake, Negative for body aches, cp chills, fever, cp 06/23 18:51 06/22 15:25 Cardiovascular: Negative for chest pain, edema, palpitations, cp cp 06/23 18:06/22 15:25 Respiratory: Negative for cough, shortness of breath, wheezing, cp cp 06/23 18:06/22 15:25 Abdomen/GI: Positive for nausea and vomiting, Negative for abdominal pain, cp diarrhea, constipation, hematemesis, cp 06/23 18:06/22 15:25 : Negative for urinary symptoms, vaginal bleeding, cp cp 06/23 18:06/22 15:25 Eyes: Negative for injury, pain, redness, and discharge, cp cp
[2024-06-22 19:47] VITALS: TEMP 97.4
[2024-06-22 19:48] VITALS: BP 110/70; O2SAT 98
== END 2024-06-22 19:42 | disposition home or self-care (01) ==
LOC: ER 14:07
DX: O99.281 Endocrine, nutritional and metabolic diseases complicating pregnancy, first trimester (principal); E86.9 Volume depletion, unspecified; O99.351 Diseases of the nervous system complicating pregnancy, first trimester; R55 Syncope and collapse; Z3A.08 8 weeks gestation of pregnancy
CPT/HCPCS: 36415; 70450; 76801; 80053; 81001; 81025; 83690; 83735; 85025; 96365; 96366; 96375; 99284; J1200; J2765; J7120

== ENCOUNTER 2024-08-09 16:23 | Emergency (ER) | payer OTHER ==
[2024-08-09 17:34] LABS: Absolute Lymphocytes (CBC) 1.4 K/uL (0.7-4.9); Absolute Monocytes 0.5 K/uL (0.1-1.3); Absolute Neutrophil 8.4 K/uL (1.8-8.0); Basophils % 0.2 % (0-1.3); Eosinophils % 0.1 % (0-4.4); Hematocrit 32.9 % (36.0-45.0); Hemoglobin 11.9 g/dL (12.0-15.0); Lymphocytes % 13.9 % (15.3-44.8); MCH 32.2 pg (27.0-35.0); MCHC 36.2 g/dL (32.0-36.0); MCV 88.9 fL (80-100); MPV 9.4 fL (7.6-11.3); Monocytes % 4.5 % (3.3-12.3); Neutrophils % 81.3 % (41.7-73.7); Platelets 196 thou/uL (152-406); RBC Red Blood Cell Count 3.71 M/uL (3.86-4.86); Red Cell Distribution Width 14.4 % (12.1-15.2)
[2024-08-09] MEDS ORDERED: NA CHLORIDE 0.9% 1,000 ML ONE ×2 (17:35→19:22)
[2024-08-09 18:05] LABS: Specific Gravity 1.012 (1.005-1.030)
[2024-08-09 18:07] LABS: Specific Gravity 1.012 (1.005-1.030); Urine Bacteria <20 /HPF (<20); Urine Bilirubin NEGATIVE (Negative); Urine Blood Negative (Negative); Urine Clarity Extremely Turbid (Clear); Urine Color Yellow (Yellow); Urine Crystals Unidentified Few /HPF (None Seen); Urine Culture Reflex Order NOT NEEDED; Urine Glucose NEGATIVE (Negative); Urine Ketones 1+ (Negative); Urine Microscopic Reflex YN ORDER UMIC; Urine Mucus 2+ /HPF (None Seen); Urine Nitrite NEGATIVE (Negative); Urine Protein TRACE (Negative); Urine RBC <5 /HPF (None Seen); Urine Urobilinogen Normal (Normal); Urine pH 6.5 (5.0-7.0)
[2024-08-09 18:19] LABS: Anion Gap 9.4 mEq/L (5.0-15.0); Potassium 3.4 mEq/L (3.5-5.1)
--- NOTE | 2024-08-09 18:49 | RAD REPORT ---
EXAMINATION: OB Limited COMPARISON: None. HISTORY: [facility] MAIN ABD PAIN Bed: TECHNIQUE: Real-time ultrasound was performed through the pelvis. A transvaginal scan was performed t o better visualize the intrauterine contents and adnexa. FINDINGS: There is a single living intrauterine . Placenta is forming posteriorly. Cervical canal is well apposed. Both ovaries are nonvisualized. There is no free fluid in the cul-de-sac. Measurements and Calculations: Femur length 39.1 mm, consistent with a sonographic age of 15 weeks, 2 days. The patient's LMP dates are 04/24/2024. heart rate: 153 BPM IMPRESSION: Single living intrauterine , with a composite sonographic age of 15 weeks, 2 days. No eviden ce of complications.
[2024-08-09] MEDS ORDERED: POTASSIUM CL SA 10 MEQ TAB PO ONE (19:21)
[2024-08-09] MEDS ORDERED: DIPHENHYDRAMINE 50 MG/ML VIAL ONE (19:21)
--- NOTE | 2024-08-09 19:44 | ER ---
Nurse's Notes [facility] Name: Renee Rutledge Age: 19 yrs Sex: Female : 2005 Arrival Date: 08/09/2024 Time: 16:23 Bed 18 Private MD: Diagnosis: Syncope Near;15 weeks gestation of Presentation: 08/09 16:49 Chief complaint: Patient states: Pt reports getting really dizzy, stumbled into wall - ld1 does not know if I hit my stomach. Pt does not remember episode after dizziness. Spouse reports pt postical behavior post dizzy spell. Coronavirus screen: At this time, the client does not indicate any symptoms associated with coronavirus-19. Ebola Screen: No symptoms or risks identified at this time. Initial Sepsis Screen: Does the patient meet any 2 criteria? No. Patient's initial sepsis screen is negative. Does the patient have a suspected source of infection? No. Patient's initial sepsis screen is negative. Risk Assessment: Do you want to hurt yourself or someone else? Patient reports no desire to harm self or others. Onset of symptoms was August 09, 2024 at 16:51. 16:49 Method Of Arrival: Ambulatory ld1 16:49 Acuity: ADALID 3 ld1 Triage Assessment: 16:49 General: Appears in no apparent distress. comfortable, Behavior is calm, cooperative, ld1 appropriate for age. Pain: Denies pain. EENT: No signs and/or symptoms were reported regarding the EENT system. Neuro: Level of Consciousness is awake, alert, obeys commands, Oriented to person, place, time, situation, Reports dizziness. Cardiovascular: Capillary refill < 3 seconds Patient's skin is warm and dry. Respiratory: Airway is patent Respiratory effort is even, unlabored. GI: Abdomen is flat, non-distended. : No signs and/or symptoms were reported regarding the genitourinary system. Derm: No signs and/or symptoms reported regarding the dermatologic system. Musculoskeletal: No signs and/or symptoms reported regarding the musculoskeletal system. Historical: - Allergies: 16:48 No Known Allergies; ld1 - PMHx: 16:48 Gastroesophageal reflux disease; ld1 - PSHx: 16:48 None; ld1 - Immunization history:: Adult Immunizations up to date. - Infectious Disease History:: Denies. - Social history:: Smoking status: Patient denies any tobacco usage or history of. Screenin:00 [facility] ED Fall Risk Assessment (Adult) History of falling in the last 3 months, aa5 including since admission No falls in past 3 months (0 pts) Confusion or Disorientation No (0 pts) Intoxicated or Sedated No (0 pts) Impaired Gait No (0 pts) Mobility Assist Device Used No (0 pt) Altered Elimination No (0 pt) Score/Fall Risk Level 0 - 2 = Low Risk Oriented to surroundings, Maintained a safe environment, Educated pt \T\ family on fall prevention, incl call for assistance when getting out of bed, Assessed \T\ reinforced patient's understanding of fall precautions. Abuse screen: Denies threats or abuse. Nutritional screening: No deficits noted. Tuberculosis screening: No symptoms or risk factors identified. 19:12 [facility] ED Fall Risk Assessment (Adult) History of falling in the last 3 months, rg5 including since admission Yes- single mechanical fall (1 pt) Confusion or Disorientation No (0 pts) Intoxicated or Sedated No (0 pts) Impaired Gait No (0 pts) Mobility Assist Device Used No (0 pt) Altered Elimination No (0 pt) Score/Fall Risk Level 0 - 2 = Low Risk Oriented to surroundings, Maintained a safe environment, Hourly rounding (assess needs \T\ fall precautionary measures) done. Abuse screen: Denies threats or abuse. Nutritional screening: No deficits noted. Tuberculosis screening: Never had TB. Assessment: 17:00 General: Appears comfortable, Behavior is calm, cooperative, Denies feeling ill. Pain: aa5 Denies pain. Neuro: Level of Consciousness is awake, alert, obeys commands, Oriented to person, place, time, situation, Reports syncopal episode today, reports intermittent dizziness, currently denies dizziness. . Cardiovascular: Heart tones S1 S2 present Rhythm is regular. Respiratory: Airway is patent Respiratory effort is even, unlabored, Respiratory pattern is regular, symmetrical. GI: No signs and/or symptoms were reported involving the gastrointestinal system. Reports intermittent nausea and vomiting during . : No signs and/or symptoms were reported regarding the genitourinary system. Denies vaginal bleeding. EENT: No signs and/or symptoms were reported regarding the EENT system. Derm: Skin is pink, warm \T\ dry. Musculoskeletal: Range of motion: intact in all extremities. 19:12 General: Appears in no apparent distress. comfortable, Behavior is calm, cooperative, rg5 appropriate for age. Pain: Complains of pain in mouth Quality of pain is described as aching. Neuro: Level of Consciousness is awake, alert, obeys commands. Cardiovascular: Denies chest pain, Patient's skin is warm and dry. Cardiovascular: Rhythm is regular. Respiratory: Airway is patent Trachea midline Respiratory effort is even, unlabored. GI: Abdomen is round. : No signs and/or symptoms were reported regarding the genitourinary system. EENT: Derm: Skin is intact, Skin is dry, Skin is normal, Skin temperature is warm. Musculoskeletal: Circulation, motion, and sensation intact. Range of motion: intact in all extremities. Vital Signs: 16:49 BP 102 / 75; Pulse 75; Resp 18; Temp 97.8(TE); Pulse Ox 96% on R/A; Weight 57.15 kg; ld1 Height 5 ft. 3 in. ; Pain 0/10; 19:12 BP 90 / 42; Pulse 64; Resp 17; Pulse Ox 100% ; rg5 20:00 BP 100 / 65; Pulse 66; Resp 18; Pulse Ox 99% on R/A; rg5 16:49 Body Mass Index 22.32 (57.15 kg, 160.02 cm) ld1 16:49 Pain Scale: Adult ld1 ED Course: 16:30 Patient arrived in ED. cj3 16:39 Sang Clayton [facility]5 16:39 Fred Mathews MD is Attending Physician. dr5 16:49 Arm band placed on right wrist. ld1 16:51 Triage completed. ld1 16:58 Eva House, RN is Primary Nurse. aa5 17:00 Patient has correct armband on for positive identification. Bed in low position. Call aa5 light in reach. Side rails up X 1. Adult w/ patient. Pulse ox on. NIBP on. 17:00 Initial lab(s) drawn, by me, sent to lab. Inserted saline lock: 20 gauge in right aa5 antecubital area, using aseptic technique. Blood collected. Flushed with 10 mL NS. 17:00 No provider procedures requiring assistance completed. aa5 17:19 US OB Limited In Process Unspecified. EDMS 19:00 Report given to ALBIN Lu. aa5 19:12 Patient has correct armband on for positive identification. Bed in low position. Call rg5 light in reach. Side rails up X 1. Door closed. Noise minimized. 20:16 Provided Education on: post er care done. rg5 20:16 IV discontinued, bleeding controlled, No redness/swelling at site. Pressure dressing rg5 applied. Administered Medications: 09:45 Drug: Acetaminophen PO 1000 mg PO once Route: PO; rg5 20:14 Follow up: Response: No adverse reaction rg5 17:50 Drug: NS 0.9% IV 1000 ml IV at 1000 ml once; to be given as a bolus over 60 minutes aa5 Route: IV; Rate: 1000 ml; Site: right antecubital; 19:00 Follow up: IV Status: Completed infusion; IV Intake: 1000ml rg5 19:28 Drug: NS 0.9% IV 1000 ml IV at 1 bolus Per protocol; to be given as a bolus over 60 rg5 minutes Route: IV; Rate: 1 bolus; Site: right antecubital; 20:15 Follow up: IV Status: Completed infusion; IV Intake: 1000ml rg5 19:28 Drug: diphenhydrAMINE IVP 12.5 mg IVP once Route: IVP; Site: right antecubital; rg5 20:14 Follow up: Response: No adverse reaction rg5 19:28 Drug: Potassium Chloride PO 20 mEq PO once Route: PO; rg5 20:14 Follow up: Response: No adverse reaction rg5 Medication: 19:12 VIS not applicable for this client. rg5 Intake: 19:00 IV: 1000ml; Total: 1000ml. rg5 20:15 IV: 1000ml; Total: 2000ml. rg5 Outcome: 19:44 Discharge ordered by . dr5 20:15 Discharged to home ambulatory, rg5 20:15 Condition: stable 20:15 Instructed on discharge instructions, follow up and referral plans. Demonstrated understanding of instructions, follow-up care, 20:17 Patient left the ED. rg5 Signatures: Dispatcher [employer] EDEva Rabago RN RN aa5 Shraddha Stallworth RN RN ld1 Aly Kent RN RN rg5 Sang Clayton, ASSESSMENT CONSULTANT-C ASSESSMENT CONSULTANT-Cdr5 Mary Jane Albert 3
--- NOTE | 2024-08-09 19:44 | EDPHYS ---
Physician Documentation [facility] Name: Renee Rutledge Age: 19 yrs Sex: Female : 2005 Arrival Date: 08/09/2024 Time: 16:23 Bed 18 Private MD: ED Physician Fred Mathews HPI: 08/09 19:48 This 19 yrs old Female presents to ER via Ambulatory with complaints of dr5 Syncope, Dizziness, 15wks . 19:48 The patient has experienced near-syncope, felt dizzy, felt faint, felt generally weak. dr5 Onset: The symptoms/episode began/occurred acutely. Patient is a 19-year-old female with history of GERD coming in with near syncope that occurred when bending over and standing back up. Patient reports that she sat back down and almost passed out. Patient reports that she has normally low blood pressure. Patient states that this has not been the first time she has positional syncopal episodes. Patient denies abdominal pain, vaginal bleeding, vaginal discharge, or fever.. Historical: - Allergies: 16:48 No Known Allergies; ld1 - PMHx: 16:48 Gastroesophageal reflux disease; ld1 - PSHx: 16:48 None; ld1 - Immunization history:: Adult Immunizations up to date. - Infectious Disease History:: Denies. - Social history:: Smoking status: Patient denies any tobacco usage or history of. ROS: 19:48 Constitutional: as per hpi dr5 Exam: 19:48 Constitutional: This is a well developed, well nourished patient who is awake, alert, dr5 and in no acute distress. Head/Face: Normocephalic, atraumatic. Eyes: Pupils equal round and reactive to light, extra-ocular motions intact. Lids and lashes normal. Conjunctiva and sclera are non-icteric and not injected. Cornea within normal limits. Periorbital areas with no swelling, redness, or edema. Neck: Trachea midline, no thyromegaly or masses palpated, and no cervical lymphadenopathy. Supple, full range of motion without nuchal rigidity, or vertebral point tenderness. No Meningismus. Chest/axilla: Normal chest wall appearance and motion. Nontender with no deformity. No lesions are appreciated. Cardiovascular: Regular rate and rhythm with a normal S1 and S2. Normal PMI, no JVD. No pulse deficits. Respiratory: Lungs have equal breath sounds bilaterally, clear to auscultation. No rales, rhonchi or wheezes noted. No increased work of breathing, no retractions or nasal flaring. Back: No spinal tenderness. No costovertebral tenderness. Full range of motion. Skin: Warm, dry with normal turgor. Normal color with no rashes, no lesions, and no evidence of cellulitis. Neuro: Awake and alert, GCS 15, oriented to person, place, time, and situation. Cranial nerves II-XII grossly intact. Motor strength 5/5 in all extremities. Sensory grossly intact. Cerebellar exam normal. Normal gait. Vital Signs: 16:49 BP 102 / 75; Pulse 75; Resp 18; Temp 97.8(TE); Pulse Ox 96% on R/A; Weight 57.15 kg; ld1 Height 5 ft. 3 in. ; Pain 0/10; 19:12 BP 90 / 42; Pulse 64; Resp 17; Pulse Ox 100% ; rg5 20:00 BP 100 / 65; Pulse 66; Resp 18; Pulse Ox 99% on R/A; rg5 16:49 Body Mass Index 22.32 (57.15 kg, 160.02 cm) ld1 16:49 Pain Scale: Adult ld1 MDM: 16:39 Medical Screening Exam initiated dr5 19:48 Differential Diagnosis: Blood pressure related syncope, [place] abnormality, threatened dr5 . Data reviewed: vital signs, nurses notes. Data reviewed: vital signs, nurses notes. I considered the following discharge prescriptions or medication management in the emergency department Medications were administered in the Emergency Department. See MAR. Care significantly affected by the following chronic conditions: GERD. Care significantly affected by the following Social Determinants of Health: Poor access to healthcare and/or lack of insurance, Poor access to transportation, Problems related to employment. Counseling: I had a detailed discussion with the patient and/or guardian regarding the historical points, exam findings, and any diagnostic results supporting the discharge/admit diagnosis, the presence of at least one elevated blood pressure reading (>120/80) during this emergency department visit, lab results, radiology results, the need for outpatient follow up, for definitive care, a family practitioner, to return to the emergency department if symptoms worsen or persist or if there are any questions or concerns that arise at home. ED course: Patient's blood work and ultrasound came back and discussed with patient. Patient mild hypokalemia. Replaced with 20 mill equivalents of potassium. Printed out results with ultrasound given to patient. Patient is feeling much better after 2 L of fluid, Tylenol, Benadryl. Patient is ready to go eat as she has not eaten all day. Discussed likely syncopal episode due to hypotension along with not eating enough throughout the day. Patient has OB appointment this and will discuss with her then. Strict ER precautions given.. 08/09 16:51 Order name: Abo/rh Typing; Complete Time: 18:02 [facility] 08/09 16:51 Order name: Basic Metabolic Panel; Complete Time: 18:57 [facility] 08/09 16:51 Order name: CBC with Diff; Complete Time: 17:48 [facility] 08/09 16:51 Order name: Test, Urine; Complete Time: 18:57 [facility] 08/09 16:51 Order name: Quantitative Hcg; Complete Time: 18:57 [facility] 08/09 16:51 Order name: Urinalysis w/ reflexes; Complete Time: 18:57 [facility] 08/09 16:51 Order name: US OB Limited; Complete Time: 18:57 [facility] 08/09 16:51 Order name: IV Saline Lock; Complete Time: 18:08 [facility] 08/09 16:51 Order name: Labs collected and sent; Complete Time: 18:08 [facility] Administered Medications: 09:45 Drug: Acetaminophen PO 1000 mg PO once Route: PO; rg5 20:14 Follow up: Response: No adverse reaction rg5 17:50 Drug: NS 0.9% IV 1000 ml IV at 1000 ml once; to be given as a bolus over 60 minutes aa5 Route: IV; Rate: 1000 ml; Site: right antecubital; 19:00 Follow up: IV Status: Completed infusion; IV Intake: 1000ml rg5 19:28 Drug: NS 0.9% IV 1000 ml IV at 1 bolus Per protocol; to be given as a bolus over 60 rg5 minutes Route: IV; Rate: 1 bolus; Site: right antecubital; 20:15 Follow up: IV Status: Completed infusion; IV Intake: 1000ml rg5 19:28 Drug: diphenhydrAMINE IVP 12.5 mg IVP once Route: IVP; Site: right antecubital; rg5 20:14 Follow up: Response: No adverse reaction rg5 19:28 Drug: Potassium Chloride PO 20 mEq PO once Route: PO; rg5 20:14 Follow up: Response: No adverse reaction rg5 Disposition Summary: 08/09/24 19:44 Discharge Ordered Notes: Location: Home dr5 Condition: Stable dr5 Diagnosis - Syncope Near dr5 - 15 weeks gestation of dr5 Followup: dr5 - With: Emergency Department - When: As needed - Reason: Worsening of condition Followup: dr5 - With: Private Physician - When: 1 - 2 days - Reason: Recheck today's complaints, Continuance of care, Re-evaluation by your physician Discharge Instructions: - Discharge Summary Sheet dr5 - Hypotension dr5 - and Anemia dr5 Forms: - Medication Reconciliation Form dr5 - Patient Portal Instructions dr5 - Leadership Thank You Letter dr5 Signatures: Dispatcher [employer] EDEva Rabago, RN RN aa5 Shraddha Stallworth RN RN ld1 Aly Kent RN RN rg5 Sang Clayton, ORE DRYER-C ORE DRYER-Cdr5 Corrections: (The following items were deleted from the chart) 16:52 16:52 ABO/RH TYPING+BB.LAB.BRZ ordered. EDMS EDMS 16:52 16:52 BASIC METABOLIC PANEL+C.LAB.BRZ ordered. EDMS EDMS 16:52 16:52 CBC+H.LAB.BRZ ordered. EDMS EDMS 16:52 16:52 Test, Urine+UC.LAB.BRZ ordered. EDMS EDMS 16:52 16:52 QUANTITATIVE HCG+C.LAB.BRZ ordered. EDMS EDMS 16:52 16:52 Urinalysis+U.LAB.BRZ ordered. EDMS EDMS
[2024-08-09 20:59] VITALS: TEMP 97.8
[2024-08-09 21:01] VITALS: BP 100/65; O2SAT 99
== END 2024-08-09 20:17 | disposition home or self-care (01) ==
LOC: ER 16:23
DX: O99.412 Diseases of the circulatory system complicating pregnancy, second trimester (principal); R55 Syncope and collapse; Z3A.15 15 weeks gestation of pregnancy
CPT/HCPCS: 96361; 85025; 81001; 80048; 36415; 86900; 81025; 86901; 84702; 76815; 96374; 99284; J1200; J7030 ×2

== ENCOUNTER 2025-01-05 20:15 | Emergency (ER) | payer OTHER ==
--- NOTE | 2025-01-05 21:03 | ER ---
Nurse's Notes [facility] Name: Renee Rutledge Age: 19 yrs Sex: Female : 2005 Arrival Date: 01/05/2025 Time: 20:15 Bed 1 Private MD: Diagnosis: RUPTURE OF MEMBRANES;37 WEEKS GESTATION OF Presentation: 01/05 20:20 Chief complaint: Patient states: 37 WEEKS STATES SHE THINKS HER WATER BROKE. jj7 HEARD A POP THEN CLEAR LIQUID CAME OUT FOR 3-4 SECONDS. FELT PRESSURE BUT NOT PAIN. Coronavirus screen: At this time, the client does not indicate any symptoms associated with coronavirus-19. Ebola Screen: No symptoms or risks identified at this time. Initial Sepsis Screen: Does the patient meet any 2 criteria? No. Patient's initial sepsis screen is negative. Does the patient have a suspected source of infection? No. Patient's initial sepsis screen is negative. Risk Assessment: Do you want to hurt yourself or someone else? Patient reports no desire to harm self or others. Onset of symptoms was January 05, 2025. 20:20 Method Of Arrival: Ambulatory [facility] 20:20 Acuity: ADALID 3 j7 Triage Assessment: 20:20 General: Appears in no apparent distress. comfortable, Behavior is calm, cooperative, jj7 appropriate for age. Pain: Denies pain. Cardiovascular: No deficits noted. Respiratory: No deficits noted. GI: No deficits noted. : Reports discharge, watery, BELIEVES HER WATER BROKE Denies cramping incontinence, urinary frequency, urgency. 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 - Infectious Disease History:: Denies. - Social history:: Smoking status: Patient denies any tobacco usage or history of. Patient/guardian denies using alcohol, street drugs, IV drugs. Screenin:56 [facility] ED Fall Risk Assessment (Adult) History of falling in the last 3 months, lg3 including since admission No falls in past 3 months (0 pts) Confusion or Disorientation No (0 pts) Intoxicated or Sedated No (0 pts) Impaired Gait No (0 pts) Mobility Assist Device Used No (0 pt) Altered Elimination No (0 pt) Score/Fall Risk Level 0 - 2 = Low Risk Oriented to surroundings, Maintained a safe environment, Educated pt \T\ family on fall prevention, incl call for assistance when getting out of bed, Assessed \T\ reinforced patient's understanding of fall precautions. Abuse screen: Denies threats or abuse. Denies injuries from another. Nutritional screening: No deficits noted. Tuberculosis screening: No symptoms or risk factors identified. Assessment: 20:56 General: Appears in no apparent distress. comfortable, Behavior is calm, cooperative. lg3 Pain: Denies pain. Neuro: No deficits noted. [place] Agitation-Sedation Scale (RASS): 0 - Alert and Calm Level of Consciousness is awake, alert, obeys commands, Oriented to person, place, time, situation. Cardiovascular: No deficits noted. Denies chest pain, shortness of breath, Capillary refill < 3 seconds Clubbing of nail beds is absent JVD is absent Patient's skin is warm and dry. Respiratory: No deficits noted. Airway is patent Respiratory effort is even, unlabored, Respiratory pattern is regular, symmetrical. GI: Abdomen is round. : No deficits noted. Reports loss of fluid. EENT: No deficits noted. No signs and/or symptoms were reported regarding the EENT system. Derm: No deficits noted. No signs and/or symptoms reported regarding the dermatologic system. Skin is intact, is healthy with good turgor, Skin is dry, Skin is normal, Skin temperature is warm. Musculoskeletal: No deficits noted. No signs and/or symptoms reported regarding the musculoskeletal system. Circulation, motion, and sensation intact. Range of motion: intact in all extremities. Vital Signs: 20:20 BP 125 / 68; Pulse 90; Resp 17; Temp 97.8; Pulse Ox 100% ; Weight 71.21 kg; Height 5 jj7 ft. 3 in. ; Pain 0/10; 21:12 BP 112 / 69; Pulse 67; Resp 17; Pulse Ox 100% ; vc1 20:20 Body Mass Index 27.81 (71.21 kg, 160.02 cm) [facility] 20:20 Pain Scale: Adult [facility] ED Course: 20:16 Patient arrived in ED. im 20:19 Tarleton, Micha, DO is Attending Physician. tt7 20:20 Arm band placed on right wrist. Patient placed in an exam room, on a stretcher. jj7 20:31 Triage completed. jj7 20:56 Patient has correct armband on for positive identification. Placed in gown. Bed in low lg3 position. Call light in reach. Side rails up X 1. Client placed on continuous cardiac and pulse oximetry monitoring. NIBP monitoring applied. Door closed. Noise minimized. Warm blanket given. Pillow given. Family accompanied patient. 20:56 Assist provider with pelvic exam: Set up pelvic tray. Performed by Micha Lowery DO lg3 Patient tolerated well. 21:11 Lory Oliveros, RN is Primary Nurse. vc1 21:12 Patient did not have IV access during this emergency room visit. vc1 21:13 Provided Education on: Safety . vc1 Administered Medications: No medications were administered Medication: 20:56 VIS not applicable for this client. lg3 Outcome: 21:02 Discharge ordered by MD. tt7 21:11 Discharged to home via wheelchair, with significant other, vc1 21:11 Condition: stable 21:11 Instructed on the need for transfer, Pt educated on the importance of transferring by ambulance for OB care, pt stated she would rather leave and go straight to [facility] by personal vehicle 21:13 Patient left the ED. vc1 Signatures: Summer Pan RN RN lg3 Lory Oliveros, RN RN vc1 Peter Albert RN RN jj7 Romina Arriaga Travis, DO DO tt7
--- NOTE | 2025-01-05 21:03 | EDPHYS ---
Physician Documentation [facility] Name: Renee Rutledge Age: 19 yrs Sex: Female : 2005 Arrival Date: 01/05/2025 Time: 20:15 Bed 1 Private MD: ED Physician Micha Lowery [employer] SPECIALIST: 01/05 20:20 2, 1, Living 0, unknown jj7 Historical: - PMHx: 20:33 Gastroesophageal reflux disease; jj7 - PSHx: 20:33 None; jj7 - Immunization history:: Adult Immunizations not up to date. - Infectious Disease History:: Denies. - Social history:: Smoking status: Patient denies any tobacco usage or history of. Patient/guardian denies using alcohol, street drugs, IV drugs. Vital Signs: 20:20 BP 125 / 68; Pulse 90; Resp 17; Temp 97.8; Pulse Ox 100% ; Weight 71.21 kg; Height 5 jj7 ft. 3 in. ; Pain 0/10; 21:12 BP 112 / 69; Pulse 67; Resp 17; Pulse Ox 100% ; vc1 20:20 Body Mass Index 27.81 (71.21 kg, 160.02 cm) jj7 20:20 Pain Scale: Adult jj7 MDM: 20:19 Medical Screening Exam initiated tt7 01/05 20:29 Order name: Pelvic Exam Setup; Complete Time: 20:56 tt7 Administered Medications: No medications were administered Disposition Summary: 01/05/25 21:02 Discharge Ordered Notes: Location: Home tt7 Problem: new tt7 Symptoms: are unchanged tt7 Condition: Stable tt7 Diagnosis - RUPTURE OF MEMBRANES tt7 - 37 WEEKS GESTATION OF tt7 Followup: tt7 - With: Emergency Department - When: As needed - Reason: Forms: - Medication Reconciliation Form tt7 - Antibiotic Education tt7 - Prescription Opioid Use tt7 - Patient Portal Instructions tt7 - Leadership Thank You Letter tt7 Signatures: Peter Albert RN RN jj7 Micha Lowery DO DO tt7
[2025-01-05 21:33] VITALS: TEMP 97.8; O2SAT 100
[2025-01-05 21:34] VITALS: BP 112/69
== END 2025-01-05 21:13 | disposition home or self-care (01) ==
LOC: ER 20:15
DX: O42.92 Full-term premature rupture of membranes, unspecified as to length of time between rupture and onset of labor (principal); Z3A.37 37 weeks gestation of pregnancy
CPT/HCPCS: 99283